=== PATIENT | male | born 1985 | race Caucasian/White ===

== ENCOUNTER 2019-04-03 08:54 | Outpatient (CLI) | payer BC ==
--- NOTE | 2019-04-03 10:29 | MRI ---
MRI OF BRAIN WITH AND WITHOUT IV CONTRAST: HISTORY: A 33-year-old male with a history of stroke, transient cerebral ischemic attack, unspecified. COMPARISON: None. CORRELATION: None. FINDINGS: No restricted diffusion is seen. There are old infarctions in the right cerebellar hemisphere. No e vidence of acute infarct, hemorrhage, mass, midline shift, or abnormal extraaxial fluid collections i s seen. The ventricular size is appropriate and the basilar cisterns patent. No abnormal postcontra st enhancement is seen. There is mucosal disease in the paranasal sinuses. IMPRESSION: 1. No evidence of acute intracranial process or mass. 2. 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 3. Mucosal disease in the paranasal sinuses. POS: [facility]
== END 2019-04-03 08:55 | disposition home or self-care (01) ==
LOC: SCSMRI 08:54
PROVIDERS: ATTEND Psychiatry & Neurology Neurology
DX: G45.9 Transient cerebral ischemic attack, unspecified (principal); J32.9 Chronic sinusitis, unspecified; Z86.73 Personal history of transient ischemic attack (TIA), and cerebral infarction without residual deficits
CPT/HCPCS: 70553